=== PATIENT | female | born 1965 ===

== ENCOUNTER 2022-09-15 06:00 | Outpatient (RCR) | payer BC, SELFPAY | END 2022-10-14 23:59 | disposition home or self-care (01) | LOC: GPT 06:00 | PROVIDERS: Visit Provider Orthopaedic Surgery | DX: Z47.1 Aftercare following joint replacement surgery (principal); Z96.653 Presence of artificial knee joint, bilateral | CPT/HCPCS: 97110; 97140; 97162 ==

== ENCOUNTER 2022-10-15 06:00 | Outpatient (RCR) | payer BC, SELFPAY | END 2022-11-14 23:59 | disposition home or self-care (01) | LOC: GPT 06:00 | PROVIDERS: Visit Provider Orthopaedic Surgery | DX: Z47.1 Aftercare following joint replacement surgery (principal); Z96.653 Presence of artificial knee joint, bilateral | CPT/HCPCS: 97110 ==